=== PATIENT | female | born 2000 | race Two or more races ===

== ENCOUNTER 2018-11-03 18:53 | Emergency (ER) | payer OTHER ==
[~2018-11-03] VITALS: Ht 165.1 cm; Wt 85.0 kg
[2018-11-03] MEDS ORDERED: IBUPROFEN 600MG TABLET PO ONE (20:00)
[2018-11-03 21:17] VITALS: BP 122/74
== END 2018-11-03 21:17 | disposition home or self-care (01) ==
LOC: ER 18:53
DX: R07.89 Other chest pain (principal); V43.52XA Car driver injured in collision with other type car in traffic accident, initial encounter; Y93.89 Activity, other specified; Y92.89 Other specified places as the place of occurrence of the external cause; Y99.8 Other external cause status
CPT/HCPCS: 71045; 93005; 99283